=== PATIENT | male | born 1970 | race African-American/Black ===

== ENCOUNTER 2021-04-29 13:10 | Emergency (ER) | payer OTHER ==
[~2021-04-29] VITALS: Ht 175.3 cm; Wt 71.4 kg
[2021-04-29 16:30] VITALS: BP 140/89
[2021-04-29] MEDS ORDERED: LIDOCAINE 1% 10 ML VIAL SQ ONE (16:30)
== END 2021-04-29 17:07 | disposition home or self-care (01) ==
LOC: EMS 13:15
DX: S61.211A Laceration without foreign body of left index finger without damage to nail, initial encounter (principal); F41.9 Anxiety disorder, unspecified; F17.210 Nicotine dependence, cigarettes, uncomplicated; F12.90 Cannabis use, unspecified, uncomplicated; W45.8XXA Other foreign body or object entering through skin, initial encounter; Y93.89 Activity, other specified; Y92.89 Other specified places as the place of occurrence of the external cause; Y99.8 Other external cause status
CPT/HCPCS: 12001; 99283; J3490